=== PATIENT | male | born 1955 | race Caucasian/White ===

== ENCOUNTER 2017-06-30 23:40 | Emergency (ER) | payer MEDICARE, MEDICAID ==
[2017-07-01 00:02] VITALS: O2SAT 98
--- NOTE | 2017-07-01 01:05 | C.PDOC ---
History Of Present Illness 61 year old male presents to the ED with complaints of suprapubic pain & urinary retention since this afternoon, and constipation. Patient's last bowel movement was yesterday. He denies fever, chills, nausea, vomiting, or flank pain. Time Seen by Provider: 07/01/17 00:28 Chief Complaint (Nursing): Male Genitourinary History Per: Patient History/Exam Limitations: no limitations Onset/Duration Of Symptoms: Hrs Current Symptoms Are (Timing): Still Present Quality Of Discomfort: "Pain" Associated Symptoms: Constipation, Other (urinary retention ). denies: Fever, Chills, Nausea, Vomiting, Diarrhea Past Medical History Reviewed: Historical Data, Nursing Documentation, Vital Signs Vital Signs: Last Vital Signs Temp 97.3 F L 07/01/17 03:46 Pulse 88 07/01/17 03:46 Resp 16 07/01/17 03:46 BP 160/92 H 07/01/17 03:46 Pulse Ox 98 07/01/17 06:17 - Medical History PMH: Kidney Stones (2000), Malignancy (Colon and Prostate) Surgical History: Cholecystectomy - [facility] Procedures LAPAROSCOPIC CHOLECYSTECTOMY (07/10/14) Family History: States: No Known Family Hx - Social History Hx Tobacco Use: No Hx Alcohol Use: Yes Hx Substance Use: No - Immunization History Hx Tetanus Toxoid Vaccination: Yes Hx Influenza Vaccination: Yes (up to date) Hx Pneumococcal Vaccination: Yes Review Of Systems Except As Marked, All Systems Reviewed And Found Negative. Constitutional: Negative for: Fever, Chills Cardiovascular: Negative for: Chest Pain, Palpitations Respiratory: Negative for: Cough, Shortness of Breath Gastrointestinal: Positive for: Abdominal Pain, Constipation. Negative for: Nausea, Vomiting, Diarrhea Genitourinary: Positive for: Other (urinary retention ) Physical Exam - Physical Exam Appears: Well, Non-toxic, Other (appears uncomfortable) Skin: Warm, Dry Head: Normacephalic Eye(s): bilateral: Normal Inspection Oral Mucosa: Moist Cardiovascular: Rhythm Regular Respiratory: Normal Breath Sounds, No Rales, No Rhonchi, No Wheezing Gastrointestinal/Abdominal: Bowel Sounds, Soft, Tenderness (suprapubic tenderness to palpation), Distention (mild suprapubic), No Rebound Back: No CVA Tenderness Neurological/Psych: Oriented x3 ED Course And Treatment - Laboratory Results Result Diagrams: 07/01/17 01:27 07/01/17 01:27 O2 Sat by Pulse Oximetry: 98 (room air ) Pulse Ox Interpretation: Normal - CT Scan/US Obstructive series Other Rad Studies (CT/US): Interpreted By Me CT/US Interpretation: constipation, no air fluid levels Progress Note: Obstructive series, blood work, and US ordered and reviewed. Bladder scan done by nurse, and saleh catheter inserted by nurse. Reevaluation Time: 03:20 Reassessment Condition: Improved (On reassessment, patient is resting comfortably and states he is seeling better. He is requesting the saleh catheter be removed - I warned him against this, as he came in with urinary retention and will likely have it again. Patient understands risks and states he wants saleh removed - removed by nurse. Rxs for Flomax, Colace, and Magnesium citrate. Patient instructed to follow up with urology within 1 week, and he understands he should return to ED if symptoms worsen.) Disposition Counseled Patient/Family Regarding: Studies Performed, Diagnosis, Need For Followup, Rx Given - Disposition Referrals: Lorraine Sims MD [Staff Provider] - Shaik Dumont MD [Staff Provider] - Disposition: HOME/ ROUTINE Disposition Time: 03:20 Condition: STABLE Additional Instructions: FOLLOW UP WITH UROLOGY WITHIN 1 WEEK USE MEDICATIONS DIRECTED RETURN TO ER IF SYMPTOMS WORSEN/RETURN Prescriptions: Docusate [Colace] 100 mg PO DAILY #30 cap Magnesium Citrate [Citrate of Mag] 300 ml PO ONCE PRN #1 bottle PRN Reason: Constipation Tamsulosin [Flomax] 0.4 mg PO DAILY #7 cap Instructions: Constipation (ED), Urinary Retention in Men (ED) Forms: [employer] (Arabic) Print Language: TUNISIAN - POA Present On Arrival: None - Clinical Impression Clinical Impression: Urinary retention, Constipation - Scribe Statement The provider has reviewed the documentation as recorded by the Scribe Juliann Rodriguez All medical record entries made by the Scribe were at my direction and personally dictated by me. I have reviewed the chart and agree that the record accurately reflects my personal performance of the history, physical exam, medical decision making, and the department course for this patient. I have also personally directed, reviewed, and agree with the discharge instructions and disposition.
[2017-07-01 01:32] LABS: BASO % 0.6 % (0.0-2.0); EOS # 0.2 K/uL (0.0-0.7); EOS % 4.2 % (0.0-4.0); HEMATOCRIT 39.9 % (35.0-51.0); LYMPH # 1.7 K/uL (1.0-4.3); LYMPH % 29.1 % (20.0-40.0); MEAN CELL VOLUME 94.2 fL (80.0-94.0); MEAN CORPUSCULAR HEMOGLOBIN 31.7 pg (27.0-31.0); MEAN CORPUSCULAR HGB CONC 33.6 g/dL (33.0-37.0); MEAN PLATELET VOLUME 7.7 fL (7.2-11.7); MONO # 0.5 K/uL (0.0-0.8); MONO % 9.3 % (0.0-10.0); RED CELL DISTRIBUTION WIDTH 12.6 % (11.5-14.5); WHITE BLOOD COUNT 5.8 K/uL (4.8-10.8)
[2017-07-01 01:36] LABS: RBC URINE 3 /hpf (0-3); URINE BILIRUBIN NEGATIVE (NEGATIVE); URINE BLOOD TRACE (NEGATIVE); URINE COLOR Yellow (YELLOW); URINE GLUCOSE (UA) NORMAL (Normal); URINE KETONE NEGATIVE (NEGATIVE); URINE LEUKOCYTE ESTERASE NEG Leu/uL (Negative); URINE PROTEIN NEGATIVE (NEGATIVE); URINE UROBILINOGEN NORMAL mg/dL (0.2-1.0); WBC URINE 2 /hpf (0-5)
[2017-07-01 01:50] LABS: CHLORIDE 101 mmol/L (98-107); SODIUM 142 mmol/L (132-148)
[2017-07-01 01:51] LABS: POTASSIUM 3.9 mmol/L (3.6-5.2)
[2017-07-01 01:53] LABS: ALB/GLOB RATIO 1.1 (1.0-2.1); ALKALINE PHOSPHATASE 85 U/L (38-126); ALT/SGPT 28 U/L (21-72); AST/SGOT 28 U/L (17-59); BILIRUBIN,TOTAL 0.7 mg/dL (0.2-1.3); BLOOD UREA NITROGEN 18 mg/dL (9-20); CARBON DIOXIDE 29 mmol/L (22-30); GFR AFRICAN-AMERICAN > 60; GLUCOSE,RANDOM 116 mg/dL (75-110); TOTAL PROTEIN 7.7 g/dL (6.3-8.3)
[2017-07-01 01:54] LABS: CALCIUM 9.2 mg/dl (8.6-10.4)
[2017-07-01] MEDS ORDERED: Magnesium Citrate Oral SOL (300 ml) PO ONE (02:03)
[2017-07-01] MEDS ORDERED: Magnesium Citrate Oral SOL (300 ml) ONE (02:41)
[2017-07-01 03:51] VITALS: BP 160/92; PULSE 88; RESP 16; TEMP 97.3
--- NOTE | 2017-07-01 10:39 | RAD ---
PROCEDURE: Radiographs of the chest and abdomen (obstructive series) HISTORY: constipation COMPARISON: No prior. TECHNIQUE: AP radiograph of the chest, with upright and supine radiographs of the abdomen. FINDINGS: CHEST: Lungs: Minimal linear scar/ atelectasis at left base. No infiltrate. Cardiovascular: Normal size heart. No pulmonary vascular congestion. Pleura: No pleural fluid. No pneumothorax. Other findings: None. ABDOMEN AND PELVIS: Bowel: Mild retained feces. No evidence of bowel obstruction. Surgical clips in right upper quadrant consistent with prior cholecystectomy. Free air: None. Bones: Unremarkable. Other findings: None. IMPRESSION: Mild retained feces. No evidence of bowel obstruction.
== END 2017-07-01 03:46 | disposition home or self-care (01) ==
LOC: C.ER 23:40
DX: R33.9 Retention of urine, unspecified (principal); K59.00 Constipation, unspecified